=== PATIENT | female | born 1935 | race Caucasian/White ===

== ENCOUNTER → 2018-01-26 13:03 | Outpatient (CLI) | payer MEDICARE, SELFPAY ==
--- NOTE | 2018-01-26 | DI.MG.S_ITS ---
BILATERAL DIGITAL SCREENING MAMMOGRAM 3D/2D WITH CAD: 01/26/2018 CLINICAL: Routine screening. Comparison is made to exams dated: 01/24/2017 mammogram, 01/22/2016 mammogram, and 01/20/2015 mammogram - [facility]. There are scattered fibroglandular elements in both breasts. Current study was also evaluated with a Computer Aided Detection (CAD) system. No significant masses, calcifications, or other findings are seen in either breast. There has been no significant interval change. IMPRESSION: NEGATIVE There is no mammographic evidence of malignancy. A 1 year screening mammogram is recommended. This exam was interpreted at Station ID: [id number]. NOTE: For mammograms, a report in lay terms will be sent to the patient. Approximately 15% of breast malignancies will not be visualized mammographically. In the management of a palpable breast mass, a negative mammogram must not discourage biopsy of a clinically suspicious lesion. Electronically Signed By: Nel perez/angel:01/26/2018 15:57:27 letter sent: Normal Exam ACR BI-RADS Category 1: Negative 3341F
== END ==
PROVIDERS: Visit Provider Nurse Practitioner
DX: Z12.31 Encounter for screening mammogram for malignant neoplasm of breast (principal); M81.0 Age-related osteoporosis without current pathological fracture; Z78.0 Asymptomatic menopausal state; Z90.722 Acquired absence of ovaries, bilateral
CPT/HCPCS: 77063; 77067; 77080

== ENCOUNTER → 2020-01-24 11:19 | Outpatient (CLI) | payer MEDICARE, SELFPAY ==
--- NOTE | 2020-01-24 11:46 | DI.MG.S_ITS ---
Patient Name: BHARTI XIE date: 1935 Sex: F Attending Physician: Pravin Indications: Date: 01/24/2020 11:31 At the request of: SLOAN SANDERSON Procedure: MM screening mammo BI BILATERAL DIGITAL SCREENING MAMMOGRAM 3D/2D WITH CAD: 01/24/2020 CLINICAL: Routine screening. Comparison is made to exams dated: 01/26/2018 mammogram, 01/24/2017 mammogram, and 01/22/2016 mammogram - [facility]. There are scattered fibroglandular elements in both breasts. Current study was also evaluated with a Computer Aided Detection (CAD) system. No significant masses, calcifications, or other findings are seen in either breast. There has been no significant interval change. IMPRESSION: NEGATIVE There is no mammographic evidence of malignancy. A 1 year screening mammogram is recommended. This exam was interpreted at Station ID: [id number]. NOTE: For mammograms, a report in lay terms will be sent to the patient. Approximately 15% of breast malignancies will not be visualized mammographically. In the management of a palpable breast mass, a negative mammogram must not discourage biopsy of a clinically suspicious lesion. Electronically Signed By: Ze huddleston/angel:01/24/2020 12:43:34 letter sent: Normal Exam ACR BI-RADS Category 1: Negative 3341F
== END ==
PROVIDERS: Referring Provider Internal Medicine Hematology & Oncology; Visit Provider Internal Medicine Hematology & Oncology
DX: Z12.31 Encounter for screening mammogram for malignant neoplasm of breast (principal)
CPT/HCPCS: 77063; 77067

== ENCOUNTER → 2020-10-01 08:48 | Outpatient (CLI) | payer MEDICARE, SELFPAY ==
[2020-10-01 09:14] LABS: Add Manual Diff / Slide Review NO; Basophils Absolute Auto 100 /uL (0-100); Eosinophils Absolute Auto 100 /uL (0-450); Hematocrit 38.6 % (36-46); Hemoglobin 12.8 g/dL (12.0-16.0); Lymphocytes Absolute Auto 2200 /uL (1100-4500); Lymphocytes Percent Auto 33.1 % (25-40); Mean Corpuscular HGB Conc 33.1 % (30-36); Mean Corpuscular Hemoglobin 33.2 PG (26-34); Mean Corpuscular Volume 100.3 fL (80-100); Monocytes Absolute Auto 500 /uL (0-900); Monocytes Percent Auto 7.1 % (3-14); Neutrophils Absolute Auto 3700 /uL (1500-7000); Neutrophils Percent Auto 56.8 % (50-75); Platelet Count 219 X10^3/uL (150-400); Red Blood Cell Count 3.85 X10^6/uL (4.0-5.2); White Blood Cell Count 6.5 X10^3/uL (4.5-11.0)
[2020-10-01 09:25] LABS: Albumin Globulin Ratio 1.8 (1.0-2.8); Alkaline Phosphatase 61 U/L (38-126); Aspartate Aminotransferase 19 IU/L (14-36); Bilirubin Total 0.5 mg/dL (0.2-1.3); Blood Urea Nitrogen 23 mg/dL (7-17); Calcium 9.4 mg/dL (8.4-10.2); Carbon Dioxide 29 mmol/L (22-32); Chloride 104 mmol/L (98-107); Estimated Glomerular Filt Rate 42.4 mL/min (>60); Globulin 2.2 g/dL (1.7-4.1); Glucose 95 mg/dL (80-110); HEMOLYSIS < 15 (0-50); Lactate Dehydrogenase 371 U/L (313-618); Potassium 3.9 mmol/L (3.4-5.1); Sodium 137 mmol/L (137-145); Total Protein 6.2 g/dL (6.3-8.2)
[2020-10-01 09:28] LABS: Alanine Aminotransferase < 4 IU/L (<35)
[2020-10-02 15:17] LABS: Free Kappa Lt Chains, Serum 5.4 mg/L (3.3-19.4); Free Lambda Lt Chains,Serum 10.9 mg/L (5.7-26.3)
[2020-10-05 15:35] LABS: Albumin 3.7 g/dL (2.9-4.4); Alpha-1-Globulin 0.2 g/dL (0.0-0.4); Alpha-2-Globulin 0.8 g/dL (0.4-1.0); Gamma Globulin 0.4 g/dL (0.4-1.8); Globulin Total 2.2 g/dL (2.2-3.9); Immunoglobulin A, Serum 33 mg/dL (64-422); Immunoglobulin G,Serum 383 mg/dL (586-1602); Immunoglobulin M, Serum 29 mg/dL (26-217); Protein, Total 5.9 g/dL (6.0-8.5)
== END ==
PROVIDERS: PCP Internal Medicine Hematology & Oncology; Referring Provider Internal Medicine Hematology & Oncology; Visit Provider Internal Medicine Hematology & Oncology
DX: C90.00 Multiple myeloma not having achieved remission (principal)
CPT/HCPCS: 36415; 80053; 82232; 82784; 83615; 83883; 84155; 84165; 85025; 86334

== ENCOUNTER → 2021-02-01 15:29 | Outpatient (CLI) | payer MEDICARE, SELFPAY ==
--- NOTE | 2021-02-01 | DI.MG.S_ITS ---
BILATERAL DIGITAL SCREENING MAMMOGRAM 3D/2D WITH CAD: 02/01/2021 CLINICAL: Routine screening. Comparison is made to exams dated: 01/24/2020 mammogram, 01/26/2018 mammogram, and 01/24/2017 mammogram - [facility]. There are scattered fibroglandular elements in both breasts. Current study was also evaluated with a Computer Aided Detection (CAD) system. No significant masses, calcifications, or other findings are seen in either breast. There has been no significant interval change. IMPRESSION: NEGATIVE There is no mammographic evidence of malignancy. A 1 year screening mammogram is recommended. This exam was interpreted at Station ID: [id number]. NOTE: For mammograms, a report in lay terms will be sent to the patient. Approximately 15% of breast malignancies will not be visualized mammographically. In the management of a palpable breast mass, a negative mammogram must not discourage biopsy of a clinically suspicious lesion. Electronically Signed By: Ze huddleston/angel:02/02/2021 08:20:57 letter sent: Normal Exam ACR BI-RADS Category 1: Negative 3341F
== END ==
PROVIDERS: PCP Internal Medicine Hematology & Oncology; Referring Provider Internal Medicine Hematology & Oncology; Visit Provider Internal Medicine Hematology & Oncology
DX: Z12.31 Encounter for screening mammogram for malignant neoplasm of breast (principal)
CPT/HCPCS: 77063; 77067

== ENCOUNTER 2022-09-01 11:25 | Emergency (ER) | payer MEDICARE, SELFPAY ==
[2022-09-01] VITALS (21 sets, daily range): BP systolic 136–181; BP diastolic 65–87; PULSE 50–71; RESP 14–20; TEMP 36.5–36.9; O2SAT 95–99; BMI 28.3
[2022-09-01 11:52] LABS: Add Manual Diff / Slide Review NO; Basophils Absolute Auto 100 /uL (0-100); Basophils Percent Auto 0.8 % (0-2); Eosinophils Absolute Auto 100 /uL (0-450); Eosinophils Percent Auto 1.5 % (2-4); Hematocrit 36.6 % (36-46); Hemoglobin 12.3 g/dL (12.0-16.0); Lymphocytes Absolute Auto 2600 /uL (1100-4500); Lymphocytes Percent Auto 31.7 % (25-40); Mean Corpuscular HGB Conc 33.6 % (30-36); Mean Corpuscular Hemoglobin 32.5 PG (26-34); Mean Corpuscular Volume 96.7 fL (80-100); Monocytes Absolute Auto 600 /uL (0-900); Monocytes Percent Auto 7.2 % (3-14); Neutrophils Absolute Auto 4800 /uL (1500-7000); Neutrophils Percent Auto 58.8 % (50-75); Platelet Count 237 X10^3/uL (150-400); Red Blood Cell Count 3.78 X10^6/uL (4.0-5.2); Red Cell Distribution Width 15.8 % (11.6-14.8); White Blood Cell Count 8.1 X10^3/uL (4.5-11.0)
[2022-09-01 12:03] LABS: Alanine Aminotransferase 8 IU/L (<35); Albumin 3.9 g/dL (3.5-5.0); Albumin Globulin Ratio 1.6 (1.0-2.8); Alkaline Phosphatase 66 U/L (38-126); Aspartate Aminotransferase 17 IU/L (14-36); BUN Creatinine Ratio 18.6 (6-22); Bilirubin Total 0.7 mg/dL (0.2-1.3); Blood Urea Nitrogen 19 mg/dL (7-17); Calcium 8.9 mg/dL (8.4-10.2); Carbon Dioxide 26 mmol/L (22-32); Chloride 102 mmol/L (98-107); Estimated Glomerular Filt Rate 54 mL/min (>60); Globulin 2.4 g/dL (1.7-4.1); Glucose 107 mg/dL (80-110); HEMOLYSIS 15 (0-50); Lipase 368 U/L (23-300); Potassium 4.3 mmol/L (3.4-5.1); Sodium 135 mmol/L (137-145); Total Protein 6.3 g/dL (6.3-8.2)
[2022-09-01 14:19] LABS: Bacteria Urine None Seen; Culture Indicated Urine Cult Not Indicated; RBC Urine None Seen (0-5/HPF); Urine Comments Microscopic Normal; WBC Urine None Seen (0-5/HPF)
--- NOTE | 2022-09-01 16:14 | ED_ITS ---
HPI - Abdominal Pain <Myke Jones PA-C - Last Filed: 09/01/22 19:35> General Chief Complaint: Abdominal Pain Stated Complaint: pain when sits and screams T-4 Time Seen by Provider: 09/01/22 13:08 Source: patient Mode of arrival: Wheelchair History of Present Illness HPI narrative: This is a 87-year-old female presents to the emergency department due to severe buttock and lumbar spine pain while sitting. She is also reporting some intermittent abdominal pain although none currently. Patient does not describe any acute traumas to the area. States it is begun 3 days ago. Denies any urinary or bowel incontinence, nausea, vomiting, fevers, or any other concerning signs or symptoms. Related Data Home Medications Medication Instructions Recorded Confirmed acyclovir 200 mg capsule 400 mg PO BID 09/10/20 08/22/22 amlodipine 5 mg tablet 5 mg PO DAILY 09/10/20 08/22/22 ascorbic acid (vitamin C) 500 mg 500 mg PO BID 09/10/20 08/22/22 tablet (Vitamin C) carbidopa ER 36.25 mg-levodopa 145 1 cap PO TID 09/10/20 08/22/22 mg capsule,extended release cholecalciferol (vitamin D3) 25 25 mcg PO DAILY 09/10/20 08/22/22 mcg (1,000 unit) tablet (Vitamin D3) vitamins A,C,J-zbmp-nfezct 4,296 1 cap PO BID 09/10/20 08/22/22 mcg-226 mg-90 mg capsule (PreserVision AREDS) aspirin 81 mg tablet 81 mg PO DAILY 10/01/20 08/22/22 cholestyramine (with sugar) 4 gram 4 g PO DAILY 10/01/20 08/22/22 powder for susp in a packet dexamethasone 4 mg tablet 4 mg PO DIRECTED 10/01/20 08/22/22 furosemide 40 mg tablet 40 mg PO DAILY 10/01/20 08/22/22 potassium chloride 10 mEq meq PO 10/01/20 tablet,extended release Previous Rx's Medication Instructions Recorded oxycodone-acetaminophen 2.5 mg-325 1 tab PO Q8H PRN pain #10 tabs 09/01/22 mg tablet Allergies Allergy/AdvReac Type Severity Reaction Status Date / Time No Known Drug Allergies Allergy Verified 09/10/20 12:29 Review of Systems <Myke Jones PA-C - Last Filed: 09/01/22 19:35> Review of Systems Narrative: GENERAL: Denies chills, fatigue, malaise, fever, sweats. HEENT: Denies sinus pain, ear pain, sore throat, difficulty swallowing, dizziness. RESPIRATORY: Denies dyspnea, cough, wheezing, hemoptysis, sputum. CARDIOVASCULAR: Denies chest pain, palpitations, orthopnea, edema, GASTROINTESTINAL: Reports occasional abdominal pain with certain movements, Denies nausea, vomiting, diarrhea, constipation, melena. : Denies dysuria, frequency, incontinence, hematuria, urinary retention. MUSCULOSKELETAL: Lumbar spine pain and right lumbar paraspinal muscle pain SKIN: Denies rash, skin lesions, or other NEUROLOGIC: Denies weakness, headache, numbness, change in speech, confusion, seizures, incoordination. PSYCHIATRIC: No concerning psychosocial issues. 12 point review of systems is negative except for those stated above Patient History <Myke Jones PA-C - Last Filed: 09/01/22 19:35> Social History Smoking Status: Never smoker Smoking Status: Never smoker Substance Use Type: does not use Exam <Myke Jones PA-C - Last Filed: 09/01/22 19:35> Narrative Exam Narrative: GENERAL: Well-developed patient, in mild distress. HEAD: Atraumatic. Normocephalic. EYES: Pupils equal round and reactive. Extraocular motions intact. No scleral icterus. No injection or drainage. ENT: Nose without bleeding, purulent drainage. Throat without erythema, tonsillar hypertrophy or exudate. Airway patent. NECK: Trachea midline. Non tender CARDIOVASCULAR: Regular rate and rhythm without murmurs, gallops, or rubs. RESPIRATORY: Clear to auscultation. Breath sounds equal bilaterally. No wheezes, rales, or rhonchi. GASTROINTESTINAL: Abdomen soft, mild tenderness with very deep palpation of the abdomen to the suprapubic area,, nondistended. EXTREMITIES: Tenderness to palpation to the right paralumbar spinal area NEURO: AOx3. SKIN: No rash or erythema of visible areas Initial Vital Signs Initial Vital Signs: Vital Signs Temperature 98.5 F 09/01/22 11:30 Pulse Rate 70 09/01/22 11:30 Respiratory Rate 09/01/22 11:30 Blood Pressure 136/66 09/01/22 11:30 Pulse Oximetry 98 09/01/22 11:30 Oxygen Delivery Method Room Air 09/01/22 11:30 <Marissa Serrano DO - Last Filed: 09/01/22 20:02> Initial Vital Signs Initial Vital Signs: Vital Signs Temperature 98.5 F 09/01/22 11:30 Pulse Rate 70 09/01/22 11:30 Respiratory Rate 20 09/01/22 11:30 Blood Pressure 136/66 09/01/22 11:30 Pulse Oximetry 98 09/01/22 11:30 Oxygen Delivery Method Room Air 09/01/22 11:30 Course <Myke oJnes PA-C - Last Filed: 09/01/22 19:35> Orders Ordered: ED Orders 09/01/22 11:38 EKG-12 Lead Stat 09/01/22 11:45 Complete Blood Count AUTO DIFF Stat Comprehensive Metabolic Panel Stat Lipase Stat Urine Microscopic Stat 09/01/22 16:25 CT abdomen pelvis wo con Stat Discontinued Medications Morphine Sulfate (Morphine 2 Mg/Ml Inj) 2 mg IV NOW ONE Stop: 09/01/22 17:20 Last Admin: 09/01/22 17:35 Dose: 2 mg Documented By: VIKA Ondansetron HCl (Ondansetron 4 Mg Odt) 4 mg PO NOW PRN PRN Reason: Nausea And Vomiting Ondansetron HCl (Ondansetron 4 Mg/2 Ml Inj) 4 mg IV NOW PRN PRN Reason: Nausea And Vomiting Vital Signs Vital signs: Vital Signs - 8 hr 09/01/22 12:47 09/01/22 12:53 09/01/22 12:53 Temperature Pulse Rate 63 61 Respiratory Rate Blood Pressure 148/70 H Pulse Oximetry 98 97 Oxygen Delivery Method Room Air 09/01/22 13:00 09/01/22 13:00 09/01/22 13:30 Temperature Pulse Rate 59 L Respiratory Rate Blood Pressure 148/78 H 156/87 H Pulse Oximetry 98 Oxygen Delivery Method 09/01/22 13:30 09/01/22 14:00 09/01/22 14:01 Temperature Pulse Rate 68 71 Respiratory Rate 14 Blood Pressure 181/81 H Pulse Oximetry 98 96 Oxygen Delivery Method Room Air 09/01/22 14:01 09/01/22 14:30 09/01/22 14:30 Temperature Pulse Rate 68 57 L Respiratory Rate Blood Pressure 158/76 H Pulse Oximetry 98 98 Oxygen Delivery Method 09/01/22 15:00 09/01/22 15:00 09/01/22 15:30 Temperature Pulse Rate 50 L 53 L Respiratory Rate Blood Pressure 161/73 H Pulse Oximetry 95 99 Oxygen Delivery Method 09/01/22 16:00 09/01/22 16:30 09/01/22 17:00 Temperature Pulse Rate 55 L 53 L 61 Respiratory Rate Blood Pressure Pulse Oximetry 99 97 97 Oxygen Delivery Method Room Air 09/01/22 17:21 09/01/22 17:21 09/01/22 17:30 Temperature Pulse Rate 59 L Respiratory Rate Blood Pressure 147/72 H 161/72 H Pulse Oximetry 97 Oxygen Delivery Method 09/01/22 17:30 09/01/22 18:00 09/01/22 18:00 Temperature Pulse Rate 59 L 59 L Respiratory Rate Blood Pressure 142/66 H Pulse Oximetry 96 97 Oxygen Delivery Method Room Air 09/01/22 18:17 09/01/22 18:31 09/01/22 18:59 Temperature Pulse Rate 53 L Respiratory Rate Blood Pressure 169/77 H Pulse Oximetry 97 95 Oxygen Delivery Method Room Air 09/01/22 19:00 09/01/22 19:00 09/01/22 19:04 Temperature 97.7 F Pulse Rate 53 L Respiratory Rate Blood Pressure 140/65 Pulse Oximetry 96 Oxygen Delivery Method <Marissa Serrano DO - Last Filed: 09/01/22 20:02> Orders Ordered: ED Orders 09/01/22 11:38 EKG-12 Lead Stat 09/01/22 11:45 Complete Blood Count AUTO DIFF Stat Comprehensive Metabolic Panel Stat Lipase Stat Urine Microscopic Stat 09/01/22 16:25 CT abdomen pelvis wo con Stat Discontinued Medications Morphine Sulfate (Morphine 2 Mg/Ml Inj) 2 mg IV NOW ONE Stop: 09/01/22 17:20 Last Admin: 09/01/22 17:35 Dose: 2 mg Documented By: VIKA Ondansetron HCl (Ondansetron 4 Mg Odt) 4 mg PO NOW PRN PRN Reason: Nausea And Vomiting Ondansetron HCl (Ondansetron 4 Mg/2 Ml Inj) 4 mg IV NOW PRN PRN Reason: Nausea And Vomiting Vital Signs Vital signs: Vital Signs - 8 hr 09/01/22 12:47 09/01/22 12:53 09/01/22 12:53 Temperature Pulse Rate 63 61 Respiratory Rate Blood Pressure 148/70 H Pulse Oximetry 98 97 Oxygen Delivery Method Room Air 09/01/22 13:00 09/01/22 13:00 09/01/22 13:30 Temperature Pulse Rate 59 L Respiratory Rate Blood Pressure 148/78 H 156/87 H Pulse Oximetry 98 Oxygen Delivery Method 09/01/22 13:30 09/01/22 14:00 09/01/22 14:01 Temperature Pulse Rate 68 71 Respiratory Rate 14 Blood Pressure 181/81 H Pulse Oximetry 98 96 Oxygen Delivery Method Room Air 09/01/22 14:01 09/01/22 14:30 09/01/22 14:30 Temperature Pulse Rate 68 57 L Respiratory Rate Blood Pressure 158/76 H Pulse Oximetry 98 98 Oxygen Delivery Method 09/01/22 15:00 09/01/22 15:00 09/01/22 15:30 Temperature Pulse Rate 50 L 53 L Respiratory Rate Blood Pressure 161/73 H Pulse Oximetry 95 99 Oxygen Delivery Method 09/01/22 16:00 09/01/22 16:30 09/01/22 17:00 Temperature Pulse Rate 55 L 53 L 61 Respiratory Rate Blood Pressure Pulse Oximetry 99 97 97 Oxygen Delivery Method Room Air 09/01/22 17:21 09/01/22 17:21 09/01/22 17:30 Temperature Pulse Rate 59 L Respiratory Rate Blood Pressure 147/72 H 161/72 H Pulse Oximetry 97 Oxygen Delivery Method 09/01/22 17:30 09/01/22 18:00 09/01/22 18:00 Temperature Pulse Rate 59 L 59 L Respiratory Rate Blood Pressure 142/66 H Pulse Oximetry 96 97 Oxygen Delivery Method Room Air 09/01/22 18:17 09/01/22 18:31 09/01/22 18:59 Temperature Pulse Rate 53 L Respiratory Rate Blood Pressure 169/77 H Pulse Oximetry 97 95 Oxygen Delivery Method Room Air 09/01/22 19:00 09/01/22 19:00 09/01/22 19:04 Temperature 97.7 F Pulse Rate 53 L Respiratory Rate Blood Pressure 140/65 Pulse Oximetry 96 Oxygen Delivery Method MDM - Abdominal Pain <Myke Jones PA-C - Last Filed: 09/01/22 19:35> Lab Data 09/01/22 11:45 09/01/22 11:45 Labs: Lab Results 09/01/22 09/01/22 09/01/22 Range/Units 11:45 11:45 11:45 WBC 8.1 (4.5-11.0) X10^3/uL RBC 3.78 L (4.0-5.2) X10^6/uL Hgb 12.3 (12.0-16.0) g/dL Hct 36.6 (36-46) % MCV 96.7 (80-100) fL MCH 32.5 (26-34) PG MCHC 33.6 (30-36) % RDW 15.8 H (11.6-14.8) % Plt Count 237 (150-400) X10^3/uL Neut % (Auto) 58.8 (50-75) % Lymph % (Auto) 31.7 (25-40) % [place] % (Auto) 7.2 (3-14) % Eos % (Auto) 1.5 L (2-4) % Baso % (Auto) 0.8 (0-2) % Neut # (Auto) 4800 (5042-2895) /uL Lymph # (Auto) 2600 (8032-1377) /uL [place] # (Auto) 600 (0-900) /uL Eos # (Auto) 100 (0-450) /uL Baso # (Auto) 100 (0-100) /uL Sodium 135 L (137-145) mmol/L Potassium 4.3 (3.4-5.1) mmol/L Chloride 102 (98-107) mmol/L Carbon Dioxide 26 (22-32) mmol/L BUN 19 H (7-17) mg/dL Creatinine 1.02 (0.52-1.04) mg/dL Estimated GFR 54 L (>60) mL/min BUN/Creatinine Ratio 18.6 (6-22) Glucose 107 (80-110) mg/dL Calcium 8.9 (8.4-10.2) mg/dL Total Bilirubin 0.7 (0.2-1.3) mg/dL AST 17 (14-36) IU/L ALT 8 (<35) IU/L Alkaline Phosphatase 66 (38-126) U/L Total Protein 6.3 (6.3-8.2) g/dL Albumin 3.9 (3.5-5.0) g/dL Globulin 2.4 (1.7-4.1) g/dL Albumin/Globulin Ratio 1.6 (1.0-2.8) Lipase 368 H (23-300) U/L Urine RBC None seen (0-5/HPF) Urine WBC None seen (0-5/HPF) Urine Bacteria None seen (None) Ur Culture Indicated? Cult not indicated Micro UA Comment Microscopic normal Point of care testing: Urine Dip Bedside Urine Glucose Negative Bedside Urine Bilirubin - Negative Bedside Urine Ketone - Negative Urine Specific [place] 1.010 Bedside Urine Occult Blood +/- Bedside Urine pH 6.0 Bedside Urine Protein - Negative Bedside Urine Urobilinogen - Negative Bedside Urine Nitrite - Negative Bedside Urine Leukocytes - Negative Esterase Imaging Data CT scan - abdomen/pelvis: My Impression: [address] [address] [address] Scan Report Signed Patient: Keyona Méndez MR#: [id number] : 1935 Acct:[id number] Age/Sex: 87 / F Date of Service: 09/01/22 Loc: ED Accession Number: [id number] ?? Procedure: CT abdomen pelvis wo con Ordering Provider: Myke Jones P.A-C PROCEDURE:? CT ABDOMEN PELVIS WO CON ? INDICATIONS:? Abdomen, pelvic pain when bearing weight ? TECHNIQUE:? Axial sections were acquired from the lung bases to the pubic symphysis.? Coronal and sagittal reformats were performed.? For radiation dose reduction, the following was used: ?automated exposure control, adjustment of mA and/or kV according to patient size.? ? COMPARISON:? [facility], , CT THORAX WITH CONTRAST, 10/23/2002, 15:24. ? FINDINGS:? Image quality:? Excellent.? ? Lung bases:? Unremarkable.? Small hiatal hernia. ? Heart:? Mildly enlarged. ? URINARY: Right Kidney: ? No stones or hydronephrosis.? Right Ureter:? No hydroureter.? ? Left Kidney: ? No stones or hydronephrosis. Left Ureter:? No hydroureter.? ? Bladder:? Normal wall thickness. No stones. ? ? ? ABDOMEN: Liver:? Liver is normal in size.? Calcific foci in liver are most likely calcified granulomas.? ? Gallbladder:? There are small gallstones.? ? Biliary ducts:? Unremarkable.? ? Pancreas:? Unremarkable.? ? Spleen:? Unremarkable.? ? Adrenal Glands:? Unremarkable.? ? ? Stomach and Bowel:? Stomach, small bowel loops, and colon are normal in caliber.? Diverticulosis without diverticulitis.? There is a large amount of stool in colon. Peritoneum:? No abnormal intraperitoneal fluid.? No free air.? ? Ventral Wall: ? There is a small fat containing periumbilical hernia.? Abdominal Nodes:? No enlarged retroperitoneal or mesenteric lymph nodes.? Vessels:? Aorta and inferior vena cava are normal in size.? ? PELVIS: Pelvic Organs:? Uterus is atrophic with calcified uterine fibroids.? ? Pelvic Nodes: Unremarkable. Miscellaneous:? Bilateral fat containing inguinal hernias are seen. ? ? ? Bones:? Moderate chronic appearing compression fracture of L4.? Degenerative disc and facet disease in lumbar spine. ? IMPRESSION:? ? 1. No acute inflammatory process in abdomen or pelvis. 2. Diverticulosis without acute diverticulitis. 3. Cholelithiasis. 4. Uterine fibroids.? 5. Small hiatal hernia. 6. Small fat containing periumbilical hernia. 7? Moderate chronic appearing L4 compression fracture.? Dictated by: Vivian Santiago M.D. on 09/01/2022 at 17:20 ? ? Approved by: Vivian Santiago M.D. on 09/01/2022 at 17:28 ? MDM Narrative Medical decision making narrative: MDM * differential diagnosis includes but not limited to lumbar strain, vertebral fracture, spinal cord injury, kidney injury, UTI * Prior records reviewed: Patient has not been here for similar complaints in the past. * My lab interpretation: Labwork negative for UTI. All other lab work unremarkable. Very mildly elevated lipase. * My imgaing interpretation: CT scan showed a possible chronic L4 compression fracture which may be the cause of the patient's pain. No other acute causes that would explain the pain. * Clinical Decision Rules/Scores evaluated: None * Independent discussions with: None ED Course: This is a 87-year-old female presents to the emergency department complaining of lumbar spine pain when she is in the active sitting down. She states that the pain radiates and wraps around to her right abdomen occasionally as well. Pain was controlled after 2 mg [address] was given. [address] scan of the abdomen and pelvis with bone windows was ordered which did show a L4 compression fracture which may be the cause of the patient's described pain. Her lab work was unremarkable otherwise. Pain may also be muscular in nature as well as palpating the paralumbar spinal muscles on the right patient did report a reproducible pain. Recommend she establish with a primary care provider for long-term pain management as well as possible referral to physical therapy. No acute life-threatening causes the pain identified. Shared Decision Making: Discussed plan patient who is comfortable with the plan. Social Considerations: None Disposition: Discharged to home <Marissa Serrano DO - Last Filed: 09/01/22 20:02> Lab Data Labs: Lab Results 09/01/22 09/01/22 09/01/22 Range/Units 11:45 11:45 11:45 WBC 8.1 (4.5-11.0) X10^3/uL RBC 3.78 L (4.0-5.2) X10^6/uL Hgb 12.3 (12.0-16.0) g/dL Hct 36.6 (36-46) % MCV 96.7 (80-100) fL MCH 32.5 (26-34) PG MCHC 33.6 (30-36) % RDW 15.8 H (11.6-14.8) % Plt Count 237 (150-400) X10^3/uL Neut % (Auto) 58.8 (50-75) % Lymph % (Auto) 31.7 (25-40) % [place] % (Auto) 7.2 (3-14) % Eos % (Auto) 1.5 L (2-4) % Baso % (Auto) 0.8 (0-2) % Neut # (Auto) 4800 (3424-3239) /uL Lymph # (Auto) 2600 (9082-5726) /uL [place] # (Auto) 600 (0-900) /uL Eos # (Auto) 100 (0-450) /uL Baso # (Auto) 100 (0-100) /uL Sodium 135 L (137-145) mmol/L Potassium 4.3 (3.4-5.1) mmol/L Chloride 102 (98-107) mmol/L Carbon Dioxide 26 (22-32) mmol/L BUN 19 H (7-17) mg/dL Creatinine 1.02 (0.52-1.04) mg/dL Estimated GFR 54 L (>60) mL/min BUN/Creatinine Ratio 18.6 (6-22) Glucose 107 (80-110) mg/dL Calcium 8.9 (8.4-10.2) mg/dL Total Bilirubin 0.7 (0.2-1.3) mg/dL AST 17 (14-36) IU/L ALT 8 (<35) IU/L Alkaline Phosphatase 66 (38-126) U/L Total Protein 6.3 (6.3-8.2) g/dL Albumin 3.9 (3.5-5.0) g/dL Globulin 2.4 (1.7-4.1) g/dL Albumin/Globulin Ratio 1.6 (1.0-2.8) Lipase 368 H (23-300) U/L Urine RBC None seen (0-5/HPF) Urine WBC None seen (0-5/HPF) Urine Bacteria None seen (None) Ur Culture Indicated? Cult not indicated Micro UA Comment Microscopic normal Point of care testing: Urine Dip Bedside Urine Glucose Negative Bedside Urine Bilirubin - Negative Bedside Urine Ketone - Negative Urine Specific [place] 1.010 Bedside Urine Occult Blood +/- Bedside Urine pH 6.0 Bedside Urine Protein - Negative Bedside Urine Urobilinogen - Negative Bedside Urine Nitrite - Negative Bedside Urine Leukocytes - Negative Esterase Discharge Plan Departure Patient Disposition: Home Clinical Impression: Closed compression fracture of L4 vertebra Activity Restrictions/Additional Instructions: Thank you for coming to the [facility] Emergency Department today. As we discussed there was no life-threatening causes of the pain found on CT scan. Lab work was also reassuring. The pain maybe because by the L4 compression fracture that we did find CT. There is no specific treatment for these but I do recommend you establish with a primary care provider to be seen by them as well as a specialist that specializes in Orthopedic spine injuries may help with this suspect musculoskeletal pain. The medication was sent to [facility]. I hope you feel better soon. Prescriptions: New oxycodone-acetaminophen 2.5-325 mg tablet 1 tab PO Q8H PRN (Reason: pain) Qty: 10 0RF No Action amlodipine 5 mg Tablet 5 mg PO DAILY ascorbic acid (vitamin C) [Vitamin C] 500 mg Tablet 500 mg PO BID acyclovir 200 mg Capsule 400 mg PO BID cholecalciferol (vitamin D3) [Vitamin D3] 25 mcg (1,000 unit) Tablet 25 mcg PO DAILY PreserVision AREDS [id number] Capsule 1 cap PO BID carbidopa-levodopa 36.25-145 mg Capsule, Extended Release 1 cap PO TID Patient Comments: pt to verify dose dexamethasone 4 mg Tablet 4 mg PO DIRECTED Rx Instructions: dose prior to treatment cholestyramine (with sugar) 4 gram Powder In Packet 4 g PO DAILY furosemide 40 mg Tablet 40 mg PO DAILY potassium chloride 10 mEq Tablet Extended Release PO aspirin 81 mg Tablet 81 mg PO DAILY Referrals: Braxton Fisher MD [Primary Care Provider] - Stand Alone Forms: Patient Portal/API <Marissa Serrano DO - Last Filed: 09/01/22 20:02> Cosign ED Attending Cosignature Attestation: I was immediately available in the department for consultation.
--- NOTE | 2022-09-01 16:25 | DI.CT.S_ITS ---
PROCEDURE: CT ABDOMEN PELVIS WO CON INDICATIONS: Abdomen, pelvic pain when bearing weight TECHNIQUE: Axial sections were acquired from the lung bases to the pubic symphysis. Coronal and sagittal reformats were performed. For radiation dose reduction, the following was used: automated exposure control, adjustment of mA and/or kV according to patient size. COMPARISON: [facility], , CT THORAX WITH CONTRAST, 10/23/2002, 15:24. FINDINGS: Image quality: Excellent. Lung bases: Unremarkable. Small hiatal hernia. Heart: Mildly enlarged. URINARY: Right Kidney: No stones or hydronephrosis. Right Ureter: No hydroureter. Left Kidney: No stones or hydronephrosis. Left Ureter: No hydroureter. Bladder: Normal wall thickness. No stones. ABDOMEN: Liver: Liver is normal in size. Calcific foci in liver are most likely calcified granulomas. Gallbladder: There are small gallstones. Biliary ducts: Unremarkable. Pancreas: Unremarkable. Spleen: Unremarkable. Adrenal Glands: Unremarkable. Stomach and Bowel: Stomach, small bowel loops, and colon are normal in caliber. Diverticulosis without diverticulitis. There is a large amount of stool in colon. Peritoneum: No abnormal intraperitoneal fluid. No free air. Ventral Wall: There is a small fat containing periumbilical hernia. Abdominal Nodes: No enlarged retroperitoneal or mesenteric lymph nodes. Vessels: Aorta and inferior vena cava are normal in size. PELVIS: Pelvic Organs: Uterus is atrophic with calcified uterine fibroids. Pelvic Nodes: Unremarkable. Miscellaneous: Bilateral fat containing inguinal hernias are seen. Bones: Moderate chronic appearing compression fracture of L4. Degenerative disc and facet disease in lumbar spine. IMPRESSION: 1. No acute inflammatory process in abdomen or pelvis. 2. Diverticulosis without acute diverticulitis. 3. Cholelithiasis. 4. Uterine fibroids. 5. Small hiatal hernia. 6. Small fat containing periumbilical hernia. 7 Moderate chronic appearing L4 compression fracture. Dictated by: Vivian Santiago M.D. on 09/01/2022 at 17:20 Approved by: Vivian Santiago M.D. on 09/01/2022 at 17:28
[2022-09-01] MEDS: MORPHINE 2 MG/ML INJ IV (17:35)
== END 2022-09-01 19:05 | disposition home or self-care (01) ==
PROVIDERS: Emergency Medicine; Emergency Provider Physician Assistant Medical; PCP Internal Medicine Hematology & Oncology
DX: M48.56XA Collapsed vertebra, not elsewhere classified, lumbar region, initial encounter for fracture (principal); R10.2 Pelvic and perineal pain; R10.9 Unspecified abdominal pain
CPT/HCPCS: 36415; 74176; 80053; 81003; 81015; 83690; 85025; 93005; 93010; 96374; 99284; J2270

== ENCOUNTER → 2022-11-01 11:17 | Outpatient (CLI) | payer MEDICARE, SELFPAY ==
--- NOTE | 2022-11-01 | DI.US.S_ITS ---
PROCEDURE: US PERIPH VENOUS LOW EXTREM BI INDICATIONS: SWELLING TECHNIQUE: Real-time imaging, as well as color and pulse Doppler interrogation, were performed of the deep veins of both legs from the inguinal ligament to the popliteal fossa. COMPARISON: None. FINDINGS: Right: The common femoral, femoral and popliteal veins are normally compressible, and free of intraluminal thrombus. Color and pulse Doppler demonstrate normal phasic intravascular flow. There is normal augmentation response to distal compression maneuver. Left: The common femoral, femoral and popliteal veins are normally compressible, and free of intraluminal thrombus. Color and pulse Doppler demonstrate normal phasic intravascular flow. There is normal augmentation response to distal compression maneuver. IMPRESSION: No evidence of DVT in visualized bilateral lower extremity veins. Severe edema throughout bilateral lower extremity soft tissues. Dictated by: Lasha Jiménez M.D. on 11/01/2022 at 12:13 Approved by: Lasha Jiménez M.D. on 11/01/2022 at 12:14
== END ==
PROVIDERS: PCP Internal Medicine; Referring Provider Physical Medicine & Rehabilitation Pain Medicine; Visit Provider Physical Medicine & Rehabilitation Pain Medicine
DX: M79.89 Other specified soft tissue disorders (principal)
CPT/HCPCS: 93970

== ENCOUNTER → 2022-11-03 07:57 | Outpatient (CLI) | payer MEDICARE, SELFPAY ==
--- NOTE | 2022-11-03 | DI.MRI.S_ITS ---
PROCEDURE: MR LUMBAR SPINE WO CON INDICATIONS: Strain of muscle, fascia and tendon of lower back, initial e TECHNIQUE: Noncontrast sagittal T1 spin echo and T2 fast echo, sagittal STIR, and T2 fast spin echo through the lumbar spine. In cases with scoliosis, additional coronal T2 fast spin echo may be performed. COMPARISON: [facility], CT, CT ABDOMEN PELVIS WO CON, 09/01/2022, 16:31. FINDINGS: Image quality: Excellent. Alignment and Curvature: There is normal bony alignment. Bone: T12 demonstrates anterior wedging with 10% anterior height loss and edema adjacent to the superior endplate and a Schmorl's node centrally. L2 and L3 demonstrate edema along the superior and inferior endplates adjacent to L2-3 consistent with degenerative changes. L4 demonstrates a central Schmorl's node with concave superior endplate height loss. Spinal Cord: Conus medullaris terminates at the L1 level. Visualized cord demonstrates normal signal and size. Paraspinous Soft Tissues: No paravertebral masses. T12-L1: No significant disc bulge. The foramina and central canal are patent. L1-L2: No significant disc bulge. The foramina and central canal are patent. L2-L3: Diffuse disc bulge with a left extraforaminal disc protrusion. Facet arthrosis on the right. Moderate right and moderate left foraminal stenosis. The central canal has moderate stenosis. L3-L4: Diffuse disc bulge. Bilateral facet arthrosis. Moderately severe right and severe left foraminal stenosis. The central canal has mild stenosis. L4-L5: Diffuse disc bulge and bilateral facet arthrosis causes moderate bilateral foraminal stenosis. The ligamentum flavum is hypertrophic. The central canal has mild stenosis. L5-S1: No significant disc bulge. The foramina and central canal are patent. IMPRESSION: 1. Multilevel lumbar spondylosis causing multilevel foraminal and central canal stenosis as detailed above. 2. Compression fracture of T12 of indeterminate age, likely remote. 3. Modic type 1 endplate degenerative changes of L2-3. 4. Central height loss from a large Schmorl's node of L4. Dictated by: Nile Bai M.D. on 11/03/2022 at 12:19 Approved by: Nile Bai M.D. on 11/03/2022 at 12:27
== END ==
PROVIDERS: PCP Internal Medicine; Referring Provider Physical Medicine & Rehabilitation Pain Medicine; Visit Provider Physical Medicine & Rehabilitation Pain Medicine
DX: S39.012A Strain of muscle, fascia and tendon of lower back, initial encounter (principal); M47.816 Spondylosis without myelopathy or radiculopathy, lumbar region; M48.061 Spinal stenosis, lumbar region without neurogenic claudication; M48.54XA Collapsed vertebra, not elsewhere classified, thoracic region, initial encounter for fracture; M51.46 Schmorl's nodes, lumbar region
CPT/HCPCS: 72148

== ENCOUNTER → 2022-11-24 11:21 | Outpatient (CLI) | payer MEDICARE, SELFPAY ==
[2022-11-24 12:13] LABS: Hemoglobin 12.9 g/dL (12.0-16.0); Mean Corpuscular HGB Conc 33.1 % (30-36); Mean Corpuscular Volume 96.9 fL (80-100); Platelet Count 246 X10^3/uL (150-400); Red Blood Cell Count 4.03 X10^6/uL (4.0-5.2); Red Cell Distribution Width 15.2 % (11.6-14.8); White Blood Cell Count 9.1 X10^3/uL (4.5-11.0)
[2022-11-24 12:50] LABS: Alanine Aminotransferase 7 IU/L (<35); Albumin Globulin Ratio 1.8 (1.0-2.8); Alkaline Phosphatase 88 U/L (38-126); Aspartate Aminotransferase 20 IU/L (14-36); Bilirubin Total 0.5 mg/dL (0.2-1.3); Blood Urea Nitrogen 39 mg/dL (7-17); Carbon Dioxide 32 mmol/L (22-32); Chloride 97 mmol/L (98-107); Cholesterol 156 mg/dL (140-199); Estimated Glomerular Filt Rate 32 mL/min (>60); Globulin 2.2 g/dL (1.7-4.1); Glucose 96 mg/dL (80-110); HDL Cholesterol 47 mg/dL (40-60); HEMOLYSIS < 15 (0-50); LDL Cholesterol Calculated 59 mg/dL (<100); Sodium 137 mmol/L (137-145); Total Protein 6.2 g/dL (6.3-8.2); Triglycerides 248 mg/dL (35-150)
[2022-11-24 13:17] LABS: TSH w/ Reflex to FT4 1.69 uIU/mL (0.47-4.68)
== END ==
PROVIDERS: PCP Internal Medicine; Referring Provider Internal Medicine; Visit Provider Internal Medicine
DX: E85.81 Light chain (AL) amyloidosis (principal); I10 Essential (primary) hypertension; G62.9 Polyneuropathy, unspecified; N18.31 Chronic kidney disease, stage 3a
CPT/HCPCS: 36415; 80053; 80061; 84443; 85027

== ENCOUNTER → 2023-01-05 | Outpatient (CLI) | payer MEDICARE, SELFPAY ==
--- NOTE | 2023-01-05 11:16 | DI.RAD.S_ITS ---
Bone Density Report Name: BHARTI XIE Age: 87 Sex: Female Ethnicity: White Date of : 1935 Indication: postmenopausal; screening for osteoporosis; Referring Provider: DIMPLE FOWLER Study: Bone densitometry was performed. Exam Date: January 05, 2023 Accession number: [id number] Bone Density: Region BMD T-score Z-score Classification AP Spine(L1-L4) 0.904 -1.3 1.6 Osteopenia Femoral Neck (Left) 0.518 -3.0 -0.5 Osteoporosis Total Hip (Left) 0.769 -1.4 0.9 Osteopenia Femoral Neck (Right) 0.608 -2.2 0.4 Osteopenia Total Hip (Right) 0.759 -1.5 0.8 Osteopenia Total Hip Mean 0.764 -1.5 0.9 Osteopenia World Health Organization criteria for BMD impression classify patients as: Normal (T-score at or above -1.0), Osteopenia (T-score between -1.0 and -2.5), or Osteoporosis (T-score at or below -2.5). 10-year Fracture Risk: FRAX not reported because: Some T-score for Spine Total or Hip Total or Femoral Neck at or below -2.5 Previous Exams: -- Region Exam Age BMD T-score BMD Change BMD Change Date g/cm2 vs Baseline vs Previous -- AP Spine (L1-L4) 01/05/2023 87 0.904 -1.3 -0.093 (-9.3%)# -0.093 (-9.3%)# 01/26/2018 82 0.997 -0.5 Total Hip(Left) 01/05/2023 87 0.769 -1.4 -0.058 (-7.0%)# -0.058 (-7.0%)# 01/26/2018 82 0.826 -0.9 Total Hip(Right) 01/05/2023 87 0.759 -1.5 -0.058 (-7.1%)# -0.058 (-7.1%)# 01/26/2018 82 0.817 -1.0 -- *Denotes significance at 95% confidence level, LSC for AP Spine = 0.022 g/cm2, LSC for Total Hip = 0.027 g/cm2 # Denotes dissimilar scan types or analysis methods Impression: The patient has osteoporosis, based on the Left Femoral Neck T-score. No significant bone loss was observed. Discussion: INCREASED RISK OF FRACTURE. BONE DENSITY IS UNDESIRABLY LOW AT ONE OR MORE SKELETAL SITES, CONSISTENT WITH POSTMENOPAUSAL OSTEOPOROSIS. This patient's lowest T-score meets the World Health Organization's (WHO) criteria for osteoporosis at one or more sites (T-score -2.5 or below). In untreated patients, the risk of osteoporotic fracture increases approximately two-fold for each 1.0 SD decrease in T-score. Low bone density is not the only risk factor for fracture; also consider factors such as patient's age, frailty or poor health, risk of falling, risk of injury, previous osteoporotic fracture, family history of osteoporosis, cigarette smoking, low body weight, etc. Not everyone with low bone mineral density has osteoporosis; osteomalacia and other metabolic bone disorders should also be considered. Patients who have osteoporosis should be evaluated for specific diseases and conditions (secondary causes) that may cause or contribute to bone loss. The [place] [employer] (AACE) and National Osteoporosis Foundation (NOF) recommend pharmacologic intervention for all postmenopausal women whose T-score is in this range. The patient should follow a healthful lifestyle (good nutrition with adequate calcium and vitamin D, and appropriate weight-bearing exercise). Follow-Up: Consider a repeat BMD and Vertebral Fracture Assessment (VFA) exam in 2 years or sooner if medically necessary, to reassess this patient's status. Reported by: TAIWO FAM MD on 01/05/2023 11:54:00 AM.
== END ==
LOC: RAD 11:15
PROVIDERS: PCP Internal Medicine; Referring Provider Internal Medicine; Visit Provider Internal Medicine
DX: M81.0 Age-related osteoporosis without current pathological fracture (principal); Z13.820 Encounter for screening for osteoporosis; Z78.0 Asymptomatic menopausal state
CPT/HCPCS: 77080

== ENCOUNTER → 2023-02-14 17:12 | Outpatient (CLI) | payer MEDICARE, SELFPAY ==
[2023-02-14 17:48] LABS: BUN Creatinine Ratio 26.6 (6-22); Blood Urea Nitrogen 34 mg/dL (7-17); Carbon Dioxide 31 mmol/L (22-32); Chloride 96 mmol/L (98-107); Estimated Glomerular Filt Rate 41 mL/min (>60); Glucose 109 mg/dL (80-110); HEMOLYSIS < 15 (0-50); Potassium 3.8 mmol/L (3.4-5.1); Sodium 134 mmol/L (137-145)
== END ==
PROVIDERS: PCP Internal Medicine; Referring Provider Internal Medicine; Visit Provider Internal Medicine
DX: N18.31 Chronic kidney disease, stage 3a (principal)
CPT/HCPCS: 36415; 80048

== ENCOUNTER → 2024-11-18 15:55 | Outpatient (CLI) | payer MEDICARE, SELFPAY ==
[2024-11-18 16:29] LABS: Hematocrit 39.0 % (36-46); Hemoglobin 13.1 g/dL (12.0-16.0); Mean Corpuscular HGB Conc 33.6 % (30-36); Mean Corpuscular Hemoglobin 32.8 PG (26-34); Mean Corpuscular Volume 97.5 fL (80-100); Platelet Count 253 X10^3/uL (150-400)
[2024-11-18 17:15] LABS: Alanine Aminotransferase 11 IU/L (<35); Albumin 4.2 g/dL (3.5-5.0); Albumin Globulin Ratio 1.8 (1.0-2.8); Alkaline Phosphatase 71 U/L (38-126); Blood Urea Nitrogen 24 mg/dL (7-17); Calcium 9.4 mg/dL (8.4-10.2); Carbon Dioxide 26 mmol/L (22-32); Chloride 105 mmol/L (98-107); Cholesterol 165 mg/dL (140-199); Estimated Glomerular Filt Rate 47 mL/min (>60); Globulin 2.3 g/dL (1.7-4.1); Glucose 128 mg/dL (70-99); HDL Cholesterol 63 mg/dL (40-60); HEMOLYSIS < 15 (0-50); Potassium 4.2 mmol/L (3.4-5.1); Sodium 138 mmol/L (137-145); Total Protein 6.5 g/dL (6.3-8.2); Triglycerides 301 mg/dL (35-150)
[2024-11-18 17:44] LABS: TSH w/ Reflex to FT4 4.45 uIU/mL (0.47-4.68)
[2024-11-18 18:02] LABS: Vitamin B12 Reflex MMA if <400 178 pg/mL (239-931)
== END ==
PROVIDERS: PCP Internal Medicine; Referring Provider Internal Medicine; Visit Provider Internal Medicine
DX: N18.31 Chronic kidney disease, stage 3a (principal); E85.81 Light chain (AL) amyloidosis; E53.8 Deficiency of other specified B group vitamins
CPT/HCPCS: 36415; 80053; 80061; 82607; 83921; 84443; 85027